=== PATIENT | female | born 1965 | race Two or more races ===

== ENCOUNTER → 2017-04-29 | Outpatient (CLI) | payer OTHER | END | disposition home or self-care (01) | LOC: EDSTATUS 15:00 → CFH 15:02 | PROVIDERS: ATTEND Nurse Practitioner Family | DX: N83.291 Other ovarian cyst, right side (principal); R93.8 Abnormal findings on diagnostic imaging of other specified body structures | CPT/HCPCS: 76830 ==

== ENCOUNTER → 2017-06-16 | Outpatient (CLI) | payer OTHER ==
[~2017-06-16] MED LIST: CALC-31 PO; HYDR200T PO; MAGN250T8 PO; MELO7.5T31 PO; MULT-224 PO; hydroeye EACHEYE
[2017-06-16 10:46] LABS: HEMOGLOBIN 14.4 g/dL (11.7-16.4); WHITE BLOOD COUNT 4.2 x10^3/uL (3.4-10)
== END | disposition home or self-care (01) ==
LOC: STAR 09:28
PROVIDERS: ATTEND Student in an Organized Health Care Education/Training Program
DX: Z01.818 Encounter for other preprocedural examination (principal); N93.9 Abnormal uterine and vaginal bleeding, unspecified
CPT/HCPCS: 36415; 81003; 84703; 85025

== ENCOUNTER 2017-06-21 09:58 | Day surgery (SDC) | payer OTHER ==
[~2017-06-21] VITALS: Ht 154.9 cm; Wt 67.7 kg
[2017-06-21] MEDS ORDERED: SILVER NITRATE STICK TP ONE (10:12)
[2017-06-21] MEDS ORDERED: EPINEPHRINE 1 MG/ML, 1ML ONE (10:12)
[2017-06-21] MEDS ORDERED: BUPIVACAINE/PF 0.25% ONE (10:12)
[2017-06-21 10:43] VITALS: BP 101/66
[2017-06-21] MEDS ORDERED: LACTATED RINGERS 1,000 ML IV SCH (10:43)
[2017-06-21 10:57] LABS: HCG UR LOT HCG7030192
[2017-06-21 11:06] LABS: HCG UR OBC PASS
[2017-06-21] MEDS ORDERED: MIDAZOLAM 1 MG/ML, 2ML ONE (11:49)
[2017-06-21] MEDS ORDERED: FENTANYL PF 250 MCG/5ML ONE (11:50)
[2017-06-21] MEDS ORDERED: SUCCINYLCHOLINE 20 MG/ML, 10ML ONE (11:51)
[2017-06-21] MEDS ORDERED: DEXAMETHASONE 4 MG/ML, 1ML ONE (11:51)
[2017-06-21] MEDS ORDERED: PROPOFOL 10 MG/ML, 20ML ONE ×3 (11:51→12:19)
[2017-06-21] MEDS ORDERED: ONDANSETRON 2MG/ML, 2ML ONE (11:51)
[2017-06-21] MEDS ORDERED: KETOROLAC 30 MG/1 ML ONE (12:22)
[2017-06-21] MEDS ORDERED: ONDANSETRON 2MG/ML, 2ML IVPush PRN (13:00)
[2017-06-21] MEDS ORDERED: MEPERIDINE/PF 25MG/0.5ML IVPush PRN (13:00)
[2017-06-21] MEDS ORDERED: OXYcodone 5 MG/5 ML ORAL.SOL UDC PO PRN (13:00)
[2017-06-21] MEDS ORDERED: HYDROmorphone 1 MG/ML, 1ML IV PRN (13:00)
[2017-06-21] MEDS ORDERED: PROMETHAZINE 25 MG/ML, 1ML IV PRN (13:00)
[2017-06-21] MEDS ORDERED: ACETAMINOPHEN 325 MG TABLET PO PRN (13:00)
[2017-06-21] MEDS ORDERED: MIDAZOLAM 1 MG/ML, 2ML IV PRN (13:00)
[2017-06-21] MEDS ORDERED: OXYcodone 5 MG/5 ML ORAL.SOL UDC ONE (14:05)
[2017-06-21] MEDS ORDERED: ACETAMINOPHEN 650 MG/20.3 ML UDC ONE (14:05)
[2017-06-21] MEDS ORDERED: FENTANYL PF 100 MCG/2ML ONE (14:09)
[2017-06-21] MEDS: FENTANYL PF 100 MCG/2ML IV PRN ×3 (14:10→14:35)
== END 2017-06-21 17:00 | disposition home or self-care (01) ==
LOC: OUT 09:58
PROVIDERS: ATTEND Student in an Organized Health Care Education/Training Program
DX: N84.0 Polyp of corpus uteri (principal); N85.8 Other specified noninflammatory disorders of uterus
CPT/HCPCS: 58558; 81025; 88305; 88341; 88342; J0171; J0330; J1100; J1885; J2250; J2405; J2704; J3010; J3490; J7120; G0461

== ENCOUNTER → 2020-10-07 | Outpatient (CLI) | payer OTHER ==
[~2020-10-07] MED LIST changes: -HYDR200T PO; +HYDR200T72 PO; -MULT-224 PO; +MULT-642 PO
== END | disposition home or self-care (01) ==
LOC: CFH 14:16
PROVIDERS: ATTEND Family Medicine
DX: M79.661 Pain in right lower leg (principal); R25.2 Cramp and spasm

== ENCOUNTER → 2021-03-04 | Outpatient (CLI) | payer OTHER | END | disposition home or self-care (01) | LOC: CFH 14:32 | PROVIDERS: ATTEND Internal Medicine Cardiovascular Disease | DX: I34.0 Nonrheumatic mitral (valve) insufficiency (principal); R07.9 Chest pain, unspecified | CPT/HCPCS: 93306; 93356 ==

== ENCOUNTER 2021-05-14 07:10 | Emergency (ER) | payer OTHER ==
[~2021-05-14] VITALS: Ht 154.9 cm; Wt 70.0 kg
--- NOTE | 2021-05-14 07:17 | NUR ---
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
[2021-05-14 08:16] LABS: BASOPHILS % (AUTO) 1 % (0-1); EOSINOPHILS % (AUTO) 4 % (1-7); LYMPHOCYTES % (AUTO) 36 % (22-44); MEAN CORPUSCULAR HEMOGLOBIN 29.9 pg (27.0-34.8); MEAN CORPUSCULAR HGB CONC 32.7 g/dL (32.4-35.8); MEAN PLATELET VOLUME 9.2 fL (7.4-10.4); MONOCYTES % (AUTO) 13 % (2-9); NEUTROPHILS % (AUTO) 46 % (42-75); PLATELET COUNT 187 x10^3/uL (130-400); RED BLOOD COUNT 4.34 x10^6/uL (3.82-5.3); RED CELL DISTRIBUTION WIDTH 12.8 % (9.6-15.2)
[2021-05-14 08:27] LABS: ALANINE AMINOTRANSFERASE 32 U/L (12-78); ALBUMIN 3.3 g/dL (3.4-5.0); ANION GAP 5 mmol/L (5-15); CALCIUM 8.7 mg/dL (8.5-10.1); CHLORIDE 108 mmol/L (98-107); CREATININE 0.55 mg/dL (0.55-1.02)
[2021-05-14 08:37] LABS: ALKALINE PHOSPHATASE 78 U/L (45-117); BILIRUBIN,TOTAL 0.3 mg/dL (0.2-1.0); TOTAL PROTEIN 7.7 g/dL (6.4-8.2); TROPONIN I < 0.015 ng/mL (0.000-0.045)
[2021-05-14 09:12] VITALS: BP 114/61
== END 2021-05-14 09:32 | disposition home or self-care (01) ==
LOC: ED 08:48
DX: R55 Syncope and collapse (principal); R00.2 Palpitations; R42 Dizziness and giddiness; R53.1 Weakness
CPT/HCPCS: 36415; 71045; 80053; 84443; 84484; 85025; 93005; 99285